=== PATIENT | female | born 1970 | race Caucasian/White ===

== ENCOUNTER → 2016-07-04 | Outpatient (CLI) | payer OTHER ==
--- NOTE | 2016-07-06 16:13 | PE ---
Nuclear medicine PET/CT HISTORY: Lung carcinoma Patient received 13.2 mCi F-18 FDG intravenously. Delayed scanning performed from the skull base thro ugh the mid thighs. Localization and attenuation correction CT scan was performed on the exam is elsa elated to prior nuclear medicine PET/CT 29 February 2016 FINDINGS: Neck and chest: There is no evident adenopathy within the neck. No mediastinal, axillary, or hilar ad enopathy. The hypermetabolic uptake seen within the right hilum, mediastinum on previous exam has res olved. Only minimal increased uptake noted in the axilla as compared to prior exam SUV 1-2. Calcified granuloma present in the left upper lobe, there are calcified left hilar nodes. No endobronchial les ion, pleural or pericardial effusion. Soft tissue mass in the right upper lobe posteriorly showing sp iculated margins measures 14 mm and has decreased in size from 2.1 cm, SUV 1.8. Emphysematous change s are present within the lungs. Abdomen pelvis: No adenopathy, no hypermetabolic uptake. IMPRESSION: Improvement as described.
== END | disposition home or self-care (01) ==
LOC: RADPETMAIN 10:00
PROVIDERS: ATTEND Internal Medicine Hematology & Oncology
DX: C34.90 Malignant neoplasm of unspecified part of unspecified bronchus or lung (principal); J43.9 Emphysema, unspecified
CPT/HCPCS: 78815; A9552